=== PATIENT | female | born 1975 | race Caucasian/White ===

== ENCOUNTER 2016-10-20 09:47 | Outpatient (CLI) ==
[2016-04-18 09:12] VITALS: BMI 40.1
[2016-10-20 13:00] LABS: BASOPHILS # (AUTO) 0.1 K/uL (0-0.2); BASOPHILS % (AUTO) 0.7 % (0.0-3.0); EOSINOPHILS # (AUTO) 0.2 K/ul (0.0-0.7); EOSINOPHILS % (AUTO) 2.7 % (0.0-7.0); HEMATOCRIT 43.5 % (37.0-47.0); HEMOGLOBIN 14.3 g/dl (12.0-16.0); IMMATURE GRANULOCYTE % (AUTO) 0.3 % (0.0-5.0); LYMPHOCYTES # (AUTO) 2.2 K/uL (0.60-3.4); MEAN CORPUSCULAR HGB CONC 32.9 (31.8-35.4); MEAN CORPUSCULAR VOLUME 85.1 fl (81.0-99.0); MONOCYTES # (AUTO) 0.5 K/uL (0.4-2.0); MONOCYTES % (AUTO) 6.9 (0-10); NEUTROPHILS # (AUTO) 4.5 K/ul (2.0-6.9); NEUTROPHILS % (AUTO) 60.4; PLATELET COUNT 196 10^3/uL (140-440); RED BLOOD COUNT 5.11 10^6/ul (4.20-5.40); WHITE BLOOD COUNT 7.51 K/ul (4.6-10.2)
[2016-10-20 13:41] LABS: ALBUMIN 3.7 g/dL (3.4-5.0); ALBUMIN/GLOBULIN RATIO 1.09; ANION GAP 9.1; BILIRUBIN,TOTAL 0.49 mg/dL (0.00-1.20); BUN/CREATININE RATIO 12.5; CALCIUM 9.1 mg/dL (8.2-10.2); CHOL/HDL RATIO 4.9 (4.5-5.5); CREATININE 0.8 mg/dL (0.60-1.30); POTASSIUM 4.1 mmol/L (3.5-5.10); TOTAL PROTEIN 7.1 g/dL (6.4-8.2)
== END 2016-10-20 09:48 | disposition home or self-care (01) ==
LOC: LAB 09:47
PROVIDERS: ATTEND Nurse Practitioner Family
DX: Z00.00 Encounter for general adult medical examination without abnormal findings (principal)
CPT/HCPCS: 36415; 80053; 80061; 84443; 85025

== ENCOUNTER 2018-02-09 14:27 | Emergency (ER) ==
[2018-02-09 14:32] VITALS: BP 144/91; TEMP 98.1; BMI 42.5
[2018-02-09] MEDS ORDERED: TORADOL IM STA (17:09)
--- NOTE | 2018-02-09 17:09 | ED.PDOC ---
General ED Provider: Dr. CRESENCIO ISABEL Chief Complaint: Ankle Pain/Injury Stated Complaint: Stated dog on a cable caught her lt ankle and pulled her down. Experiencing severe pain and difficulty with ambulation Time Seen by Physician: 14:25 Mode of Arrival: Wheelchair Information Source: Patient Exam Limitations: No limitations Primary Care Provider: IVY AGUERO Referred to ED by: PCP Nursing and Triage Documentation Reviewed and Agree: Yes Reviewed sepsis parameters & appropriate labs ordered?: Yes System Inflammatory Response Syndrome: Not Applicable Sepsis Protocol: For patient's 13 years and over: Temp is 96.8 and below OR 101 and greater Pulse >90 BPM Resp >20/minute Acutely Altered Mental Status Are patient's symptoms suggestive of a new infection, such as: -Pneumonia -Skin, Soft Tissue -Endocarditis -UTI -Bone, Joint Infection -Implantable Device -Acute Abdominal Infection -Wound Infection -Meningitis -Blood Stream Catheter Infection -Unknown System Inflammatory Response Syndrome: Not Applicable Musculoskeletal Complaint Exam - Ankle/Foot Complaint/Exam Location of Injury: Reports: Right, Ankle Mechanism of Injury: Reports: Trauma Symptoms Are: Reports: Still present Onset of Pain: Reports: Immediate Initial Severity: Moderate Current Severity: Moderate Location: Reports: Diffuse Character: Reports: Sharp, Aching, Throbbing Alleviating: Reports: Rest Aggravating: Reports: Movement, Weight bearing Able to Bear Weight: Yes (Minimal) Gout Risk Factors: Reports: None Related Surgical History: Reports: None Lower Extremity Findings: Present: Tenderness Achilles Tendon Abnormality: No Tenderness: Present: Medial malleolus Differential Diagnosis: Sprain Review of Systems - Review Of Systems Constitutional: Reports: No symptoms Eyes: Reports: No symptoms Ears, Nose, Mouth, Throat: Reports: No symptoms Respiratory: Reports: No symptoms Cardiac: Reports: No symptoms GI: Reports: No symptoms : Reports: No symptoms Musculoskeletal: Reports: Joint pain Skin: Reports: No symptoms Neurological: Reports: No symptoms Endocrine: Reports: No symptoms Hematologic/Lymphatic: Reports: No symptoms All Other Systems: Reviewed and Negative Past Medical History - Past Medical History Previously Healthy: Yes Endocrine: Reports: None Cardiovascular: Reports: None Respiratory: Reports: None Hematological: Reports: None Gastrointestinal: Reports: None Genitourinary: Reports: None Neuro/Psych: Reports: None Musculoskeletal: Reports: None, Back Pain Cancer: Reports: None Last Menstrual Period: none Other Pertinent Past Medical History: hysterectomy, tubal x 2 back pain - Surgical History General Surgical History: Reports: Hysterectomy - Family History Family History: Reports: Unknown (no foreing travel no family or aquaintences with illness or TB) - Social History Smoking Status: Current every day smoker, Light tobacco smoker Hx Substance Use: No Alcohol Screening: None Physical Exam - Physical Exam Appearance: Well-appearing, No pain distress, Well-nourished, Obese Eyes: MELE, EOMI, Conjunctiva clear ENT: Ears normal, Nose normal, Oropharynx normal Respiratory: Airway patent, Breath sounds clear, Breath sounds equal, Respirations nonlabored Cardiovascular: RRR, Pulses normal, No rub, No murmur GI/: Soft, Nontender, No masses, Bowel sounds normal, No Organomegaly Musculoskeletal: ROM intact, No calf tenderness (Linear abrasion over distal pretibial region adjacent to ankle/ Tenderness to ROM testing/No deformity), Limited strength, Edema Skin: Warm, Dry, Normal color Neurological: Sensation intact, Motor intact, Reflexes intact, Cranial nerves intact, Alert, Oriented Psychiatric: Affect appropriate, Mood appropriate Interpretation - Radiology Interpretation Radiology Interpretation By: Radiologist Radiology Results: No acute changes Exam Interpreted: CT Scan Re-Evaluation - Re-Evaluation Time of Re-Evaluation: 18:15 Status: Improved Vital Signs Stable: Yes Appearance: NAD Additional Comments: Less tenderness over ankle injury Critical Care Note - Critical Care Note Total Time (mins): 0 Course - Course Orders, Labs, Meds: Orders Category Date Time Status CRUTCHES [ED CRUTCHES] .ONCE EMERGENCY 02/09/18 18:27 Active ED SPLINT APPLICATION .ONCE EMERGENCY 02/09/18 18:27 Active Ketorolac Tromethamine [Toradol] MEDS 02/09/18 17:09 Discontinued 30 mg IM ONCE STA CT ANKLE LEFT WITHOUT CONTRAST Stat RADS 02/09/18 17:13 Completed Medications Discontinued Medications Generic Name Dose Route Start Last Admin Trade Name Freq PRN Reason Stop Dose Admin Ketorolac Tromethamine 30 mg 02/09/18 17:09 02/09/18 17:30 Toradol IM 02/09/18 17:10 30 mg ONCE STA Administration Vital Signs: Temp Pulse Resp BP Pulse Ox 02/09/18 14:27 98.1 F 83 18 144/91 H 96 Departure - Departure Time of Disposition: 18:30 Disposition: HOME SELF-CARE Discharge Problem: Sprain and strain of ankle Instructions: Ankle Sprain (ED) Condition: Good Pt referred to PMD for follow-up: Yes (PCP) IPMP verified?: No Additional Instructions: Elevate injured ankle apply ice Crutches /minimize weight bearing ambulation Prescriptions: Ketorolac Tromethamine [Toradol] 10 mg PO Q6H PRN #20 tablet PRN Reason: ankle pain Allergies/Adverse Reactions: Allergies codeine Adverse Reaction (Verified 02/09/18 14:32) Home Medications: Ambulatory Orders Ketorolac Tromethamine [Toradol] 10 mg PO Q6H PRN #20 tablet 02/09/18 Disposition Discussed With: Patient
--- NOTE | 2018-02-09 18:04 | CT ---
EXAM: CT scan left ankle HISTORY: Injury COMPARISON: None. FINDINGS: Contiguous axial images obtained through the ankle without contrast utilizing 2-mm collima tion. Sagittal and coronal reconstructions were imaged and reviewed. The ankle mortise and talar do me are intact.. There is a 3.5 mm bony body medial to the midportion of the talus which is indetermi israel, likely chronic in nature. There are plantar and retrocalcaneal spurs. IMPRESSION: Small bony body medial to the mid to talus which is indeterminate most likely chronic in nature. Plantar and retrocalcaneal spurs
== END 2018-02-09 18:52 | disposition home or self-care (01) ==
LOC: ED 14:27
DX: S93.402A Sprain of unspecified ligament of left ankle, initial encounter (principal); W18.09XA Striking against other object with subsequent fall, initial encounter; F17.210 Nicotine dependence, cigarettes, uncomplicated
CPT/HCPCS: 96372; 99283

== ENCOUNTER 2022-08-23 11:32 | Observation (INO) ==
--- NOTE | 2022-08-23 11:54 | ED.PDOC ---
General ED Provider: Dr. RASHEED MOSLEY Chief Complaint: Hypertension Stated Complaint: bp has steadily been going up some headache today no trauma. Both parents had HBP No fever or neck pain Time Seen by Provider: 08/23/22 11:36 Mode of Arrival: Walk-In Information Source: Patient Exam Limitations: No limitations Primary Care Provider: IVY PELAEZElvis Seen Within Last 72 Hours for Same Complaint By: ED Nursing and Triage Documentation Reviewed and Agree: Yes Does patient meet sepsis criteria?: No System Inflammatory Response Syndrome: Not Applicable Sepsis Protocol: For patient's 13 years and over: Temp is 96.8 and below OR 101 and greater Pulse >90 BPM Resp >20/minute Acutely Altered Mental Status Are patient's symptoms suggestive of a new infection, such as: -Pneumonia -Skin, Soft Tissue -Endocarditis -UTI -Bone, Joint Infection -Implantable Device -Acute Abdominal Infection -Wound Infection -Meningitis -Blood Stream Catheter Infection -Unknown Review of Systems Review Of Systems Constitutional: Reports No symptoms Eyes: Reports No symptoms Ears, Nose, Mouth, Throat: Reports No symptoms Respiratory: Reports No symptoms Cardiac: Reports No symptoms GI: Reports No symptoms : Reports No symptoms Musculoskeletal: Reports No symptoms Skin: Reports No symptoms Neurological: Reports No symptoms Endocrine: Reports No symptoms Hematologic/Lymphatic: Reports No symptoms All Other Systems: Reviewed and Negative [facility] Medical History Gastroesophageal reflux disease Family History FATHER CKD (chronic kidney disease) FATHER Heart disease Mother Heart disease FATHER Stroke Mother Stroke Mother Heart attack Social History Smoking and tobacco status: Current every day smoker Tobacco type: cigarettes Smoking cigarettes per day: 8 Tobacco: How many years used: 24 Surgical History History of gynecological procedure Status post hysterectomy (~2010) Status post tonsillectomy Female Reproductive History Menstrual Hx Hysterectomy: Yes Hx Tubal Ligation: No Physical Exam Physical Exam Appearance: Reports Well-appearing Ill-appearing: None Pain Distress: Mild Eyes: Reports MELE, EOMI, Conjunctiva clear and Other (fundi neg ) ENT: Reports Ears normal, Nose normal and Oropharynx normal Neck: Supple Respiratory: Reports Airway patent, Breath sounds clear and Breath sounds equal Cardiovascular: Reports RRR, Pulses normal and No murmur GI/: Reports Soft and Nontender Musculoskeletal: Reports Normal strength, ROM intact and No edema Skin: Reports Warm, Dry and Normal color Neurological: Reports Sensation intact, Motor intact and Alert Psychiatric: Reports Affect appropriate and Mood appropriate Interpretation Radiology Interpretation Radiology Interpretation By: Radiologist Exam Interpreted: CXR and CT Scan Xray Comments: bioth neg EKG Interpretation Time of EKG #1: 12:09 Rate: Normal Rhythm: Sinus [place]: NL ST Segment: Normal Interpretation: pos lae Critical Care Note Critical Care Note Total Critical Care Time (mins): 20 Comments: chart review / bedside exams and re evaluation / IV meds / hypokalemia Course Course Hematology/Chemistry: 08/23/22 12:04 08/23/22 12:04 Orders, Labs, Meds: Lab Review 08/23/22 08/23/22 08/23/22 12:04 12:04 12:04 WBC 11.76 H RBC 5.32 Hgb 15.3 Hct 45.0 MCV 84.6 MCH 28.8 MCHC 34.0 RDW Coeff of Arias 12.8 Plt Count 213 Immature Gran % (Auto) 0.3 Neut % (Auto) 65.1 Lymph % (Auto) 26.0 Jasper % (Auto) 6.0 Eos % (Auto) 2.1 Baso % (Auto) 0.5 Neut # (Auto) 7.7 H Lymph # (Auto) 3.1 Jasper # (Auto) 0.7 Eos # (Auto) 0.3 Baso # (Auto) 0.1 Immature Gran # (Auto) 0.0 Sodium 142.2 Potassium 3.22 L Chloride 106.9 Carbon Dioxide 28.0 Anion Gap 10.52 BUN 11.7 Creatinine 0.80 Estimated GFR (MDRD) 77.00 BUN/Creatinine Ratio 14.62 Glucose 102.3 Calcium 9.18 Magnesium 2.04 Total Bilirubin 0.57 AST 23.9 ALT 20.7 Alkaline Phosphatase 91.8 Troponin I < 0.012 Total Protein 8.14 Albumin 4.60 Globulin 3.54 Albumin/Globulin Ratio 1.29 Urine Opiates Screen Ur Oxycodone Screen Urine Methadone Screen Ur Propoxyphene Screen Ur Barbiturates Screen U Tricyclic Antidepress Ur Phencyclidine Scrn Ur Amphetamine Screen U Methamphetamines Scrn U Benzodiazepines Scrn Urine Cocaine Screen U Cannabinoids Screen Plasma/Serum Alcohol SARS CoV-2 RNA Rapid YOLANDA 08/23/22 08/23/22 08/23/22 12:35 13:50 15:20 WBC RBC Hgb Hct MCV MCH MCHC RDW Coeff of Arias Plt Count Immature Gran % (Auto) Neut % (Auto) Lymph % (Auto) Jasper % (Auto) Eos % (Auto) Baso % (Auto) Neut # (Auto) Lymph # (Auto) Jasper # (Auto) Eos # (Auto) Baso # (Auto) Immature Gran # (Auto) Sodium Potassium Chloride Carbon Dioxide Anion Gap BUN Creatinine Estimated GFR (MDRD) BUN/Creatinine Ratio Glucose Calcium Magnesium Total Bilirubin AST ALT Alkaline Phosphatase Troponin I Total Protein Albumin Globulin Albumin/Globulin Ratio Urine Opiates Screen Negative Ur Oxycodone Screen Negative Urine Methadone Screen Negative Ur Propoxyphene Screen Negative Ur Barbiturates Screen Negative U Tricyclic Antidepress Negative Ur Phencyclidine Scrn Negative Ur Amphetamine Screen Negative U Methamphetamines Scrn Negative U Benzodiazepines Scrn Negative Urine Cocaine Screen Negative U Cannabinoids Screen Negative Plasma/Serum Alcohol < 10.0 SARS CoV-2 RNA Rapid YOLANDA Negative Orders Category Date Time Status ADMIT PATIENT INPATIENT .TO [facility] (MONITORED BED) ADMISSION 08/23/22 16:17 Active EKG-(ED ONLY) Stat CARDIO 08/23/22 11:56 Completed EKG-(IP & OP ONLY) DAILY CARDIO 08/24/22 06:00 Ordered EKG-(IP & OP ONLY) DAILY CARDIO 08/25/22 06:00 Ordered ACTIVITY .Up ad Yasmeen CARE 08/23/22 16:17 Active INTAKE & OUTPUT Q8HR CARE 08/23/22 16:17 Active IP: INSERT SALINE LOCK ONCE CARE 08/23/22 16:17 Active TELEMETRY MONITORING TELE CARE 08/23/22 16:18 Active VITAL SIGNS Q8HR CARE 08/23/22 16:17 Active VTE PREVENTION .SCD On AM/Off PM CARE 08/23/22 16:17 Active CARDIAC DIET DIETARY 08/23/22 Dinner Ordered ED CORONARY CLINICAL SPECIALIST APPLIED .ONCE EMERGENCY 08/23/22 14:03 Active ED IV/MEDIPORT/POWERPORT .ONCE EMERGENCY 08/23/22 11:54 Active ALCOHOL LEVEL [BLOOD ALCOHOL] Stat LAB 08/23/22 12:35 Completed CBC W/ AUTO DIFF DAILY@0600 LAB 08/24/22 06:00 Ordered CBC W/ AUTO DIFF DAILY@0600 LAB 08/25/22 06:00 Ordered CBC W/ AUTO DIFF Stat LAB 08/23/22 12:04 Completed CMP [COMPREHENSIVE METABOLIC PANEL] Stat LAB 08/23/22 12:04 Completed COMPREHENSIVE METABOLIC PANEL DAILY@0600 LAB 08/24/22 06:00 Ordered COMPREHENSIVE METABOLIC PANEL DAILY@0600 LAB 08/25/22 06:00 Ordered COVID [SARS COV-2 RNA RAPID YOLANDA] Stat LAB 08/23/22 15:20 Completed MAGNESIUM Stat LAB 08/23/22 12:04 Completed TROPONIN I Q8H LAB 08/23/22 22:30 Ordered TROPONIN I Q8H LAB 08/24/22 06:30 Ordered TROPONIN I Stat LAB 08/23/22 12:04 Completed URINE DRUG SCREEN (RAPID FOR ED) [DRUG SCREEN, URINE, LAB 08/23/22 13:50 Completed RAPID] Stat 0.9 % Sodium Chloride [Saline Flush] MEDS 08/23/22 11:54 Active 1 syr IVF PRN PRN Acetaminophen [Tylenol] MEDS 08/23/22 16:23 Active 1,000 mg PO ONCE PRN Acetaminophen [Tylenol] MEDS 08/23/22 15:08 Discontinued 1,000 mg PO ONCE STA Amlodipine Besylate [Norvasc] MEDS 08/23/22 14:02 Discontinued 5 mg PO ONCE STA Hydralazine HCl MEDS 08/23/22 15:08 Discontinued 5 mg IVP ONCE STA Hydralazine HCl MEDS 08/23/22 16:04 Discontinued 5 mg IVP ONCE STA Hydralazine HCl MEDS 08/23/22 16:23 Discontinued 5 mg IVP Q6H PRN Pantoprazole Sodium [Protonix] MEDS 08/23/22 16:30 Active 40 mg PO QDAC Potassium Chloride [K-Dur] MEDS 08/23/22 21:00 Active 20 meq PO BID Potassium Chloride [K-Dur] MEDS 08/23/22 13:50 Discontinued 20 meq PO ONCE STA Sodium Chloride 0.9% [Sodium Chloride] 1,000 ml MEDS 08/23/22 11:55 Active IV 30 mls/hr RESUSCITATION STATUS Routine OTHERS 08/23/22 16:17 Ordered CHEST, 1V AP ONLY Stat RADS 08/23/22 11:[address] HEAD W/O CONTRAST Stat RADS 08/23/22 12:22 Completed Medications Generic Name Dose Route Start Last Admin Trade Name Freq PRN Reason Stop Dose Admin Acetaminophen 1,000 mg 08/23/22 16:23 Acetaminophen 500 Mg Tablet PO ONCE PRN Pain Hydralazine HCl 10 mg 08/23/22 16:59 Hydralazine Hcl 20 Mg/Ml Sdv IVP Q6H PRN Hypertension Sodium Chloride 1,000 mls @ 30 mls/hr 08/23/22 11:55 08/23/22 12:20 Sodium Chloride IV 08/24/22 21:14 30 mls/hr .[id number] STA Administration Pantoprazole Sodium 40 mg 08/23/22 16:30 08/23/22 17:54 Pantoprazole Sodium 40 Mg Tablet.Dr PO 40 mg QDAC ANDREW Administration Potassium Chloride 20 meq 08/23/22 21:00 Potassium Chloride 20 Meq Tab PO BID ANDREW Sodium Chloride 1 syr 08/23/22 11:54 0.9% Sodium Chloride 10 Ml Disp.Syrin IVF PRN PRN To flush IV Discontinued Medications Generic Name Dose Route Start Last Admin Trade Name Freq PRN Reason Stop Dose Admin Acetaminophen 1,000 mg 08/23/22 15:08 08/23/22 15:17 Acetaminophen 500 Mg Tablet PO 08/23/22 15:09 1,000 mg ONCE STA Administration Amlodipine Besylate 5 mg 08/23/22 14:02 08/23/22 14:10 Amlodipine Besylate 5 Mg Tablet PO 08/23/22 14:03 5 mg ONCE STA Administration Hydralazine HCl 5 mg 08/23/22 15:08 08/23/22 15:17 Hydralazine Hcl 20 Mg/Ml Sdv IVP 08/23/22 15:09 5 mg ONCE STA Administration Hydralazine HCl 5 mg 08/23/22 16:04 08/23/22 16:09 Hydralazine Hcl 20 Mg/Ml Sdv IVP 08/23/22 16:05 5 mg ONCE STA Administration Hydralazine HCl 5 mg 08/23/22 16:23 Hydralazine Hcl 20 Mg/Ml Sdv IVP Q6H PRN Hypertension Potassium Chloride 20 meq 08/23/22 13:50 08/23/22 13:59 Potassium Chloride 20 Meq Tab PO 08/23/22 13:51 20 meq ONCE STA Administration Vital Signs: Temp Pulse Resp BP Pulse Ox 08/23/22 16:42 172/102 H 08/23/22 16:03 178/101 H 08/23/22 15:43 167/118 H 08/23/22 15:28 168/99 H 08/23/22 14:58 184/114 H 08/23/22 14:45 181/112 H 08/23/22 14:17 176/111 H 08/23/22 14:10 180/118 H 08/23/22 13:42 175/102 H 08/23/22 13:31 169/106 H 08/23/22 13:21 158/109 H 08/23/22 13:01 163/119 H 08/23/22 11:32 97.9 F 119 H 16 195/138 H 97 bp after initial med responded some and goal of approx 20 % reduction After observation pressure trened up discussed with pt and will start amlodipine 5 mg will add prn q 6 hrs hydralazine 10 mg IV admit due to IV meds \ BP reduction improved MARYJANE Risk Score MARYJANE Risk Score: Risk Score Odds of by 30D 0 0.1 (0.1-0.2) 1 0.3 (0.2-0.3) 2 0.4 (0.3-0.5) 3 0.7 (0.6-0.9) 4 1.2 (1.0-1.5) 5 2.2 (1.9-2.6) 6 3.0 (2.5-3.6) 7 4.8 (3.8-6.1) Discharge Plan Discharge Patient Disposition: PLACED OBSERVATION Discharge Problem: Hypertensive urgency, Hypokalemia Did you review [place] BUTTERMAKER CONTINUOUS CHURN?: Not Applicable ED Provider: RASHEED MOSLEY Condition: Good Physician Progress Note: []
[2022-08-23] MEDS ORDERED: SODIUM CHLORIDE 1,000 ML IV STA (11:55)
[2022-08-23 12:12] LABS: BASOPHILS # (AUTO) 0.1 K/uL (0-0.2); BASOPHILS % (AUTO) 0.5 % (0.0-3.0); EOSINOPHILS # (AUTO) 0.3 K/ul (0.0-0.7); EOSINOPHILS % (AUTO) 2.1 % (0.0-7.0); HEMOGLOBIN 15.3 g/dl (12.0-16.0); IMMATURE GRANULOCYTE % (AUTO) 0.3 % (0.0-5.0); LYMPHOCYTES # (AUTO) 3.1 K/uL (0.60-3.4); MEAN CORPUSCULAR HEMOGLOBIN 28.8 pg (27.0-31.0); MEAN CORPUSCULAR VOLUME 84.6 fl (81.0-99.0); MONOCYTES # (AUTO) 0.7 K/uL (0.4-2.0); NEUTROPHILS # (AUTO) 7.7 K/ul (2.0-6.9); NEUTROPHILS % (AUTO) 65.1 % (42.2-75.2); PLATELET COUNT 213 10^3/uL (140-440); RDW COEFFICIENT OF VARIATION 12.8 % (11.6-14.8); RED BLOOD COUNT 5.32 10^6/ul (4.20-5.40); WHITE BLOOD COUNT 11.76 K/ul (4.6-10.2)
--- NOTE | 2022-08-23 12:16 | DI ---
EXAM: Chest one view, frontal view only. HISTORY: Hypertensive urgency. COMPARISON: 04/18/2016. FINDINGS: The heart size is normal. There is no pulmonary vascular congestion. The lungs are clear . No pleural effusion or pneumothorax is seen. No acute osseous abnormality is identified. Since t he prior study, there has been no significant interval change. IMPRESSION: No acute cardiopulmonary process.
[2022-08-23 12:23] LABS: ALANINE AMINOTRANSFERASE 20.7 U/L (0-35); ALKALINE PHOSPHATASE 91.8 U/L (38-126); ASPARTATE AMINO TRANSFERASE 23.9 U/L (14-36); BILIRUBIN,TOTAL 0.57 mg/dL (0.2-1.3); BLOOD UREA NITROGEN 11.7 mg/dL (7-17); CALCIUM 9.18 mg/dL (8.4-10.2); CHLORIDE 106.9 mmol/L (98-107); GLUCOSE 102.3 mg/dL (74-106); POTASSIUM 3.22 mmol/L (3.5-5.1); SODIUM 142.2 mmol/L (134.5-145); TOTAL PROTEIN 8.14 g/dL (6.3-8.2)
[2022-08-23 12:34] LABS: TROPONIN I < 0.012 ng/ml (0.0000-0.120)
--- NOTE | 2022-08-23 12:50 | CT ---
EXAM: CT head without contrast. HISTORY: Headache. Hypertensive urgency. COMPARISON: None. TECHNIQUE: Multiple axial images of the brain were obtained from the skull base through the vertex w ithout intravenous contrast. Multiplanar reformats were provided. FINDINGS: There is no intracranial hemorrhage or extraaxial collection. The guerra-white differentiat ion is maintained without evidence for acute large vascular territory infarction. The cortical sulci and basal cisterns are well visualized. There is no hydrocephalus, mass effect, or midline shift. The paranasal sinuses and mastoid air cells are clear. The calvarium is intact. IMPRESSION: No acute intracranial abnormality. All CT scans are performed using dose optimization techniques as appropriate to the performed exam an d include at least one of the following: Automated exposure control, adjustment of the mA and/or kV according t o size, and the use of iterative reconstruction technique.
[2022-08-23] MEDS ORDERED: K-DUR PO STA (13:50)
[2022-08-23] MEDS ORDERED: COZAAR PO STA (13:52)
[2022-08-23] MEDS ORDERED: NORVASC PO STA (14:02)
[2022-08-23 14:10] LABS: AMPHETAMINE SCREEN,URINE NEGATIVE (NEGATIVE); BARBITURATE SCREEN,URINE NEGATIVE (NEGATIVE); BENZODIAZEPINES SCREEN,URINE NEGATIVE (NEGATIVE); CANNABINOID SCREEN,URINE NEGATIVE (NEGATIVE); COCAIN SCREEN,URINE NEGATIVE (NEGATIVE); METHADONE URINE SCREEN NEGATIVE (NEGATIVE); METHAMPHETAMINES SCREEN,URINE NEGATIVE (NEGATIVE); OPIATE SCREEN,URINE NEGATIVE (NEGATIVE); OXYCODONE URINE SCREEN NEGATIVE (NEGATIVE); PHENCYCLIDINE SCREEN,URINE NEGATIVE (NEGATIVE); PROPOXYPHENE URINE SCREEN NEGATIVE (NEGATIVE); TRICYCLIC ANTIDEPRESSANTS URIN NEGATIVE (NEGATIVE)
[2022-08-23] MEDS ORDERED: HYDRALAZINE HCL IVP STA ×2 (15:08→16:04)
[2022-08-23] MEDS ORDERED: TYLENOL PO STA (15:08)
[2022-08-23] MEDS ORDERED: HYDRALAZINE HCL IVP PRN (16:23)
[2022-08-23] MEDS ORDERED: TYLENOL PO PRN (16:23)
[2022-08-23 17:29] VITALS: BMI 40.6
[2022-08-23] MEDS: PROTONIX PO SCH (17:54)
--- NOTE | 2022-08-23 20:34 | PCM ---
Chief Complaint Chief Complaint: elevated BP, headache History of Present Illness History of Present Illness: has been trending upward. Today highest and she came in Review of Systems Constitutional: Reports No symptoms Eyes: Reports No symptoms Ears: Reports No symptoms Nose: Reports No symptoms Throat: Reports No symptoms Mouth: Reports No symptoms Respiratory: Reports No symptoms Cardiovascular: Reports No symptoms Gastrointestinal: Reports No symptoms Genitourinary: Reports No symptoms Neurological: Reports Headache (not worst ever front throb ); Denies Dizziness, Numbness, Weakness, Speech difficulty, Problems with walking, Tremor or Fainting Musculoskeletal: Reports No symptoms Skin: Reports No symptoms Immunology: Reports No symptoms Hematology: Reports No symptoms Endocrine: Reports No symptoms Psychiatric: Reports No symptoms Habits: Reports Tobacco use Allergies Allergies Allergy/AdvReac Type Severity Reaction Status Date / Time codeine AdvReac Verified 08/23/22 12:05 PFS Medical History Gastroesophageal reflux disease Surgical History History of gynecological procedure Status post hysterectomy (~2010) Status post tonsillectomy Family History FATHER CKD (chronic kidney disease) FATHER Heart disease Mother Heart disease FATHER Stroke Mother Stroke Mother Heart attack Social History Smoking and tobacco status: Current every day smoker Tobacco type: cigarettes Smoking cigarettes per day: 8 Tobacco: How many years used: 24 Medications Medications: Medications Generic Name Dose Route Start Last Admin Trade Name Freq PRN Reason Stop Dose Admin Acetaminophen 1,000 mg 08/23/22 16:23 Acetaminophen 500 Mg Tablet PO ONCE PRN Pain Hydralazine HCl 10 mg 08/23/22 16:59 Hydralazine Hcl 20 Mg/Ml Sdv IVP Q6H PRN Hypertension Sodium Chloride 1,000 mls @ 30 mls/hr 08/23/22 11:55 08/23/22 12:20 Sodium Chloride IV 08/24/22 21:14 30 mls/hr .[id number] STA Administration Pantoprazole Sodium 40 mg 08/23/22 16:30 08/23/22 17:54 Pantoprazole Sodium 40 Mg Tablet.Dr PO 40 mg QDAC ANDREW Administration Potassium Chloride 20 meq 08/23/22 21:00 Potassium Chloride 20 Meq Tab PO BID ANDREW Sodium Chloride 1 syr 08/23/22 11:54 0.9% Sodium Chloride 10 Ml Disp.Syrin IVF PRN PRN To flush IV Body Composition Height: 5 ft 3 in Weight: 229 lb 11.2 oz Body Mass Index (BMI): 40.6 Vital Signs Temperature: 97.9 F Pulse Rate: 92 Respiratory Rate: 18 Blood Pressure: 162/106 O2 Sat by Pulse Oximetry: 100 Physical Examination Appearance: Reports Well-appearing Ill-appearing: None Pain Distress: Mild Eyes: Reports MELE, EOMI and Conjunctiva clear ENT: Reports Ears normal, Nose normal and Oropharynx normal Neck: Supple Respiratory: Reports Airway patent, Breath sounds clear and Breath sounds equal Cardiovascular: Reports RRR, Pulses normal and No murmur GI/: Reports Soft and Nontender Musculoskeletal: Reports Normal strength and ROM intact Skin: Reports Warm and Normal color Neurological: Reports Sensation intact, Motor intact, Alert and Oriented Psychiatric: Reports Affect appropriate and Mood appropriate Lab/Tests/Diagnostic Imaging Lab/Tests/Diagnostic Imaging: Lab Review 08/23/22 08/23/22 08/23/22 12:04 12:04 12:04 WBC 11.76 H RBC 5.32 Hgb 15.3 Hct 45.0 MCV 84.6 MCH 28.8 MCHC 34.0 RDW Coeff of Arias 12.8 Plt Count 213 Immature Gran % (Auto) 0.3 Neut % (Auto) 65.1 Lymph % (Auto) 26.0 Freestone % (Auto) 6.0 Eos % (Auto) 2.1 Baso % (Auto) 0.5 Neut # (Auto) 7.7 H Lymph # (Auto) 3.1 Freestone # (Auto) 0.7 Eos # (Auto) 0.3 Baso # (Auto) 0.1 Immature Gran # (Auto) 0.0 Sodium 142.2 Potassium 3.22 L Chloride 106.9 Carbon Dioxide 28.0 Anion Gap 10.52 BUN 11.7 Creatinine 0.80 Estimated GFR (MDRD) 77.00 BUN/Creatinine Ratio 14.62 Glucose 102.3 Calcium 9.18 Magnesium 2.04 Total Bilirubin 0.57 AST 23.9 ALT 20.7 Alkaline Phosphatase 91.8 Troponin I < 0.012 Total Protein 8.14 Albumin 4.60 Globulin 3.54 Albumin/Globulin Ratio 1.29 Urine Opiates Screen Ur Oxycodone Screen Urine Methadone Screen Ur Propoxyphene Screen Ur Barbiturates Screen U Tricyclic Antidepress Ur Phencyclidine Scrn Ur Amphetamine Screen U Methamphetamines Scrn U Benzodiazepines Scrn Urine Cocaine Screen U Cannabinoids Screen Plasma/Serum Alcohol SARS CoV-2 RNA Rapid YOLANDA 08/23/22 08/23/22 08/23/22 12:35 13:50 15:20 WBC RBC Hgb Hct MCV MCH MCHC RDW Coeff of Arias Plt Count Immature Gran % (Auto) Neut % (Auto) Lymph % (Auto) Freestone % (Auto) Eos % (Auto) Baso % (Auto) Neut # (Auto) Lymph # (Auto) Freestone # (Auto) Eos # (Auto) Baso # (Auto) Immature Gran # (Auto) Sodium Potassium Chloride Carbon Dioxide Anion Gap BUN Creatinine Estimated GFR (MDRD) BUN/Creatinine Ratio Glucose Calcium Magnesium Total Bilirubin AST ALT Alkaline Phosphatase Troponin I Total Protein Albumin Globulin Albumin/Globulin Ratio Urine Opiates Screen Negative Ur Oxycodone Screen Negative Urine Methadone Screen Negative Ur Propoxyphene Screen Negative Ur Barbiturates Screen Negative U Tricyclic Antidepress Negative Ur Phencyclidine Scrn Negative Ur Amphetamine Screen Negative U Methamphetamines Scrn Negative U Benzodiazepines Scrn Negative Urine Cocaine Screen Negative U Cannabinoids Screen Negative Plasma/Serum Alcohol < 10.0 SARS CoV-2 RNA Rapid YOLANDA Negative Orders Category Date Time Status ADMIT PATIENT INPATIENT .TO [facility] (MONITORED BED) ADMISSION 08/23/22 16:17 Active EKG-(ED ONLY) Stat CARDIO 08/23/22 11:56 Completed EKG-(IP & OP ONLY) DAILY CARDIO 08/24/22 06:00 Ordered EKG-(IP & OP ONLY) DAILY CARDIO 08/25/22 06:00 Ordered ACTIVITY .Up ad Yasmeen CARE 08/23/22 16:17 Active INTAKE & OUTPUT Q8HR CARE 08/23/22 16:17 Active IP: INSERT SALINE LOCK ONCE CARE 08/23/22 16:17 Active TELEMETRY MONITORING TELE CARE 08/23/22 16:18 Active VITAL SIGNS Q8HR CARE 08/23/22 16:17 Active VTE PREVENTION .SCD On AM/Off PM CARE 08/23/22 16:17 Active CARDIAC DIET DIETARY 08/23/22 Dinner Ordered ED SSN/SSBN [employer] .ONCE EMERGENCY 08/23/22 14:03 Active ED IV/MEDIPORT/POWERPORT .ONCE EMERGENCY 08/23/22 11:54 Active ALCOHOL LEVEL [BLOOD ALCOHOL] Stat LAB 08/23/22 12:35 Completed CBC W/ AUTO DIFF DAILY@0600 LAB 08/24/22 06:00 Ordered CBC W/ AUTO DIFF DAILY@0600 LAB 08/25/22 06:00 Ordered CBC W/ AUTO DIFF Stat LAB 08/23/22 12:04 Completed CMP [COMPREHENSIVE METABOLIC PANEL] Stat LAB 08/23/22 12:04 Completed COMPREHENSIVE METABOLIC PANEL DAILY@0600 LAB 08/24/22 06:00 Ordered COMPREHENSIVE METABOLIC PANEL DAILY@0600 LAB 08/25/22 06:00 Ordered COVID [SARS COV-2 RNA RAPID YOLANDA] Stat LAB 08/23/22 15:20 Completed MAGNESIUM Stat LAB 08/23/22 12:04 Completed TROPONIN I Q8H LAB 08/23/22 22:30 Ordered TROPONIN I Q8H LAB 08/24/22 06:30 Ordered TROPONIN I Stat LAB 08/23/22 12:04 Completed URINE DRUG SCREEN (RAPID FOR ED) [DRUG SCREEN, URINE, LAB 08/23/22 13:50 Completed RAPID] Stat 0.9 % Sodium Chloride [Saline Flush] MEDS 08/23/22 11:54 Active 1 syr IVF PRN PRN Acetaminophen [Tylenol] MEDS 08/23/22 16:23 Active 1,000 mg PO ONCE PRN Acetaminophen [Tylenol] MEDS 08/23/22 15:08 Discontinued 1,000 mg PO ONCE STA Amlodipine Besylate [Norvasc] MEDS 08/23/22 14:02 Discontinued 5 mg PO ONCE STA Hydralazine HCl MEDS 08/23/22 16:59 Active 10 mg IVP Q6H PRN Hydralazine HCl MEDS 08/23/22 15:08 Discontinued 5 mg IVP ONCE STA Hydralazine HCl MEDS 08/23/22 16:04 Discontinued 5 mg IVP ONCE STA Hydralazine HCl MEDS 08/23/22 16:23 Discontinued 5 mg IVP Q6H PRN Pantoprazole Sodium [Protonix] MEDS 08/23/22 16:30 Active 40 mg PO QDAC Potassium Chloride [K-Dur] MEDS 08/23/22 21:00 Active 20 meq PO BID Potassium Chloride [K-Dur] MEDS 08/23/22 13:50 Discontinued 20 meq PO ONCE STA Sodium Chloride 0.9% [Sodium Chloride] 1,000 ml MEDS 08/23/22 11:55 Active IV 30 mls/hr RESUSCITATION STATUS Routine OTHERS 08/23/22 16:17 Ordered CHEST, 1V AP ONLY Stat RADS 08/23/22 11:[address] HEAD W/O CONTRAST Stat RADS 08/23/22 12:22 Completed Medications Generic Name Dose Route Start Last Admin Trade Name Josselyn PRN Reason Stop Dose Admin Acetaminophen 1,000 mg 08/23/22 16:23 Acetaminophen 500 Mg Tablet PO ONCE PRN Pain Hydralazine HCl 10 mg 08/23/22 16:59 Hydralazine Hcl 20 Mg/Ml Sdv IVP Q6H PRN Hypertension Sodium Chloride 1,000 mls @ 30 mls/hr 08/23/22 11:55 08/23/22 12:20 Sodium Chloride IV 08/24/22 21:14 30 mls/hr .[id number] STA Administration Pantoprazole Sodium 40 mg 08/23/22 16:30 08/23/22 17:54 Pantoprazole Sodium 40 Mg Tablet.Dr PO 40 mg QDAC ANDREW Administration Potassium Chloride 20 meq 08/23/22 21:00 Potassium Chloride 20 Meq Tab PO BID ANDREW Sodium Chloride 1 syr 08/23/22 11:54 0.9% Sodium Chloride 10 Ml Disp.Syrin IVF PRN PRN To flush IV Discontinued Medications Generic Name Dose Route Start Last Admin Trade Name Jsoselyn PRN Reason Stop Dose Admin Acetaminophen 1,000 mg 08/23/22 15:08 08/23/22 15:17 Acetaminophen 500 Mg Tablet PO 08/23/22 15:09 1,000 mg ONCE STA Administration Amlodipine Besylate 5 mg 08/23/22 14:02 08/23/22 14:10 Amlodipine Besylate 5 Mg Tablet PO 08/23/22 14:03 5 mg ONCE STA Administration Hydralazine HCl 5 mg 08/23/22 15:08 08/23/22 15:17 Hydralazine Hcl 20 Mg/Ml Sdv IVP 08/23/22 15:09 5 mg ONCE STA Administration Hydralazine HCl 5 mg 08/23/22 16:04 08/23/22 16:09 Hydralazine Hcl 20 Mg/Ml Sdv IVP 08/23/22 16:05 5 mg ONCE STA Administration Hydralazine HCl 5 mg 08/23/22 16:23 Hydralazine Hcl 20 Mg/Ml Sdv IVP Q6H PRN Hypertension Potassium Chloride 20 meq 08/23/22 13:50 08/23/22 13:59 Potassium Chloride 20 Meq Tab PO 08/23/22 13:51 20 meq ONCE STA Administration Assessment (1) Hypertensive urgency: Status: Acute Code(s): I16.0 - Hypertensive urgency SNOMED Code(s): 360222771 (2) Hypokalemia: Status: Acute Code(s): E87.6 - Hypokalemia SNOMED Code(s): 75440302 Plan Plan: 1For elevated pressure start amlodipine 5 mg po daily. Hydralazine q 6 hrs prn systolic > 160 / diastolic > 100 2.For hypokalemia KCL20 Meq po bid 3GI - protonix 4.DVT - SCD Report given to Dr Kelley at evening shift change
[2022-08-23] MEDS ORDERED: K-DUR PO SCH (21:00)
[2022-08-23] MEDS: HYDRALAZINE HCL IVP PRN (23:19)
[2022-08-24] MEDS: PROTONIX PO SCH (05:49)
[2022-08-24 06:34] LABS: BASOPHILS # (AUTO) 0.1 K/uL (0-0.2); BASOPHILS % (AUTO) 0.5 % (0.0-3.0); EOSINOPHILS # (AUTO) 0.3 K/ul (0.0-0.7); EOSINOPHILS % (AUTO) 2.8 % (0.0-7.0); HEMATOCRIT 43.9 % (37.0-47.0); HEMOGLOBIN 14.9 g/dl (12.0-16.0); IMMATURE GRANULOCYTE % (AUTO) 0.3 % (0.0-5.0); LYMPHOCYTES # (AUTO) 2.6 K/uL (0.60-3.4); LYMPHOCYTES % (AUTO) 23.4 (10.0-50.0); MEAN CORPUSCULAR HEMOGLOBIN 28.9 pg (27.0-31.0); MEAN CORPUSCULAR HGB CONC 33.9 (31.8-35.4); MEAN CORPUSCULAR VOLUME 85.1 fl (81.0-99.0); MONOCYTES # (AUTO) 0.7 K/uL (0.4-2.0); MONOCYTES % (AUTO) 5.9 (0-10); NEUTROPHILS # (AUTO) 7.4 K/ul (2.0-6.9); NEUTROPHILS % (AUTO) 67.1 % (42.2-75.2); PLATELET COUNT 221 10^3/uL (140-440); RED BLOOD COUNT 5.16 10^6/ul (4.20-5.40)
[2022-08-24 06:43] LABS: ALANINE AMINOTRANSFERASE 18.5 U/L (0-35); ALBUMIN 4.13 g/dL (3.5-5.0); ALKALINE PHOSPHATASE 80.7 U/L (38-126); ASPARTATE AMINO TRANSFERASE 21.7 U/L (14-36); BILIRUBIN,TOTAL 0.75 mg/dL (0.2-1.3); BLOOD UREA NITROGEN 12.6 mg/dL (7-17); CALCIUM 8.92 mg/dL (8.4-10.2); CARBON DIOXIDE 23.1 mmol/L (22-30.0); CHLORIDE 110.3 mmol/L (98-107); CREATININE 0.64 mg/dL (0.60-1.30); GLUCOSE 114.3 mg/dL (74-106); POTASSIUM 3.84 mmol/L (3.5-5.1); SODIUM 138.6 mmol/L (134.5-145); TOTAL PROTEIN 7.4 g/dL (6.3-8.2)
[2022-08-24] MEDS: K-DUR PO SCH ×2 (08:14→16:54)
[2022-08-24] MEDS ORDERED: TYLENOL PO PRN (08:22)
[2022-08-24 10:00] LABS: ERYTHROCYTE SEDIMENTATION RATE 7 mm/hr (0-20)
[2022-08-24] MEDS: HYDRALAZINE HCL IVP PRN (10:23)
--- NOTE | 2022-08-24 10:26 | PCM.PROG ---
Date Seen by Provider: 08/24/22 Time Seen by Provider: 10:23 Subjective: pt improving, headache better Objective: Vitals: T=97.9 F, P=90, R=16, SG=193/102, SPO2=98 HEENT: []conjunctiva clear Neck: []supple Lungs: [] no respiratory distress CVS: []RRR Abdomen: []nondistended Extremities: []chidi Neurological: []alert and oriented Skin: []pink Lab/Tests/Diagnostic Imaging: [] head ct nap, sed wnl (1) Hypertensive urgency: Status: Acute Code(s): I16.0 - Hypertensive urgency SNOMED Code(s): 464203247 (2) Hypokalemia: Status: Acute Code(s): E87.6 - Hypokalemia SNOMED Code(s): 91011042 Plan: continue hydralazine prn, start lopressor 25xl, start tylenol 650 q6 [address] Allen at 19:00
[2022-08-24] MEDS ORDERED: TOPROL XL PO SCH (10:30)
[2022-08-24] MEDS ORDERED: CATAPRES PO STA ×2 (12:32→15:01)
[2022-08-25 05:39] LABS: BASOPHILS # (AUTO) 0.1 K/uL (0-0.2); BASOPHILS % (AUTO) 0.6 % (0.0-3.0); EOSINOPHILS # (AUTO) 0.4 K/ul (0.0-0.7); EOSINOPHILS % (AUTO) 4.5 % (0.0-7.0); HEMATOCRIT 41.1 % (37.0-47.0); HEMOGLOBIN 13.6 g/dl (12.0-16.0); IMMATURE GRANULOCYTE % (AUTO) 0.1 % (0.0-5.0); LYMPHOCYTES # (AUTO) 2.9 K/uL (0.60-3.4); LYMPHOCYTES % (AUTO) 35.2 (10.0-50.0); MEAN CORPUSCULAR HEMOGLOBIN 28.8 pg (27.0-31.0); MEAN CORPUSCULAR HGB CONC 33.1 (31.8-35.4); MEAN CORPUSCULAR VOLUME 86.9 fl (81.0-99.0); MONOCYTES # (AUTO) 0.6 K/uL (0.4-2.0); NEUTROPHILS # (AUTO) 4.3 K/ul (2.0-6.9); NEUTROPHILS % (AUTO) 52.6 % (42.2-75.2); PLATELET COUNT 193 10^3/uL (140-440); RDW COEFFICIENT OF VARIATION 13.2 % (11.6-14.8); RED BLOOD COUNT 4.73 10^6/ul (4.20-5.40); WHITE BLOOD COUNT 8.23 K/ul (4.6-10.2)
[2022-08-25] MEDS: PROTONIX PO SCH (05:41)
[2022-08-25 05:52] LABS: ALANINE AMINOTRANSFERASE 16.7 U/L (0-35); ALBUMIN 3.79 g/dL (3.5-5.0); ALKALINE PHOSPHATASE 70.3 U/L (38-126); ASPARTATE AMINO TRANSFERASE 18.6 U/L (14-36); BILIRUBIN,TOTAL 0.59 mg/dL (0.2-1.3); BLOOD UREA NITROGEN 17.3 mg/dL (7-17); CALCIUM 8.43 mg/dL (8.4-10.2); CARBON DIOXIDE 26.3 mmol/L (22-30.0); CHLORIDE 111.9 mmol/L (98-107); CREATININE 0.83 mg/dL (0.60-1.30); GLUCOSE 111.6 mg/dL (74-106); POTASSIUM 4.15 mmol/L (3.5-5.1); SODIUM 139.3 mmol/L (134.5-145); TOTAL PROTEIN 6.78 g/dL (6.3-8.2)
[2022-08-25] MEDS: HYDRALAZINE HCL IVP PRN (06:18)
[2022-08-25] MEDS ORDERED: CATAPRES PO PRN (08:47)
[2022-08-25] MEDS: K-DUR PO SCH ×2 (08:55→18:06)
[2022-08-25] MEDS ORDERED: TOPROL XL PO SCH (09:00)
[2022-08-25] MEDS: TOPROL XL PO SCH (09:28)
--- NOTE | 2022-08-25 09:53 | PCM.PROG ---
Date Seen by Provider: 08/25/22 Time Seen by Provider: 09:50 Subjective: pt w/o a headache, blood pressure still labile Objective: Vitals: T=97.9 F, P=68, R=16, YQ=239/104, SPO2=97 HEENT: []conjunctiva clear Neck: []supple Lungs: [] no respiratory distress CVS: []rrr Abdomen: []nondistended Extremities: []chidi Neurological: []alert and oriented Skin: []pink Lab/Tests/Diagnostic Imaging: [] K= 4.1 (1) Hypertensive urgency: Status: Acute Code(s): I16.0 - Hypertensive urgency SNOMED Code(s): 355922341 (2) Hypokalemia: Status: Acute Code(s): E87.6 - Hypokalemia SNOMED Code(s): 58619508 Plan: increase lopressor xl from 25 to 50, add clonidine coverage .1 q8prn for sp over [address] Allen at 19:00
[2022-08-26] MEDS: PROTONIX PO SCH (05:44)
[2022-08-26 07:26] LABS: BASOPHILS # (AUTO) 0.1 K/uL (0-0.2); BASOPHILS % (AUTO) 0.5 % (0.0-3.0); EOSINOPHILS # (AUTO) 0.4 K/ul (0.0-0.7); EOSINOPHILS % (AUTO) 3.9 % (0.0-7.0); HEMATOCRIT 45.1 % (37.0-47.0); HEMOGLOBIN 14.6 g/dl (12.0-16.0); IMMATURE GRANULOCYTE % (AUTO) 0.2 % (0.0-5.0); LYMPHOCYTES # (AUTO) 3.1 K/uL (0.60-3.4); LYMPHOCYTES % (AUTO) 32.6 (10.0-50.0); MEAN CORPUSCULAR HEMOGLOBIN 28.4 pg (27.0-31.0); MEAN CORPUSCULAR HGB CONC 32.4 (31.8-35.4); MEAN CORPUSCULAR VOLUME 87.7 fl (81.0-99.0); MONOCYTES # (AUTO) 0.7 K/uL (0.4-2.0); MONOCYTES % (AUTO) 7.5 (0-10); NEUTROPHILS # (AUTO) 5.2 K/ul (2.0-6.9); NEUTROPHILS % (AUTO) 55.3 % (42.2-75.2); PLATELET COUNT 217 10^3/uL (140-440); RDW COEFFICIENT OF VARIATION 13.1 % (11.6-14.8); RED BLOOD COUNT 5.14 10^6/ul (4.20-5.40); WHITE BLOOD COUNT 9.45 K/ul (4.6-10.2)
[2022-08-26 07:37] LABS: BLOOD UREA NITROGEN 16.4 mg/dL (7-17); CALCIUM 8.64 mg/dL (8.4-10.2); CARBON DIOXIDE 28.6 mmol/L (22-30.0); CHLORIDE 108.7 mmol/L (98-107); CREATININE 0.81 mg/dL (0.60-1.30); GLUCOSE 104.8 mg/dL (74-106); POTASSIUM 4.16 mmol/L (3.5-5.1); SODIUM 140.3 mmol/L (134.5-145)
[2022-08-26] MEDS: K-DUR PO SCH (08:36)
[2022-08-26] MEDS: TOPROL XL PO SCH (08:36)
[2022-08-26 10:09] VITALS: TEMP 97.5
[2022-08-26] MEDS: HYDRALAZINE HCL IVP PRN (12:34)
[2022-08-26 13:23] VITALS: BP 133/86
--- NOTE | 2022-08-26 13:26 | PCM.DC ---
Final Diagnosis: uncontrolled hypertension Physical Exam Appearance: Well-appearing Ill-appearing: None Pain Distress: None Eyes: Conjunctiva clear ENT: Oropharynx normal Neck: Supple Respiratory: Airway patent Cardiovascular: RRR GI/: Nontender Musculoskeletal: ROM intact Skin: Normal color Neurological: Alert and Oriented Psychiatric: Affect appropriate (1) Hypertensive urgency: Status: Acute Code(s): I16.0 - Hypertensive urgency SNOMED Code(s): 544546746 (2) Hypokalemia: Status: Acute Code(s): E87.6 - Hypokalemia SNOMED Code(s): 93456699 Reason for Hospitalization: uncontrolled blood pressure Prognosis/Condition at Discharge: good Medications at Discharge: metoprolol xl 50, clonidine and home meds, and potassium supplement Lab/Diagnostics: K+ 4.1 Education Provided to Patient and Family: obtain a home blood pressure monitior Follow-ups: see your doctor, or the clinic Discharge Disposition: Home Hospital Course: pt improved to new directed therapy Plan: discharge home
== END 2022-08-26 14:00 | disposition home or self-care (01) ==
LOC: ED 11:32 → MEDSURG A 16:46 → INTOOBSV 16:46 → MEDSURG A 17:10
PROVIDERS: ADMIT Emergency Medicine; ATTEND Emergency Medicine Emergency Medical Services
DX: E87.6 Hypokalemia; F17.210 Nicotine dependence, cigarettes, uncomplicated; Z03.89 Encounter for observation for other suspected diseases and conditions ruled out; K21.9 Gastro-esophageal reflux disease without esophagitis; I16.0 Hypertensive urgency; Z20.822 Contact with and (suspected) exposure to COVID-19; Z82.3 Family history of stroke; Z82.49 Family history of ischemic heart disease and other diseases of the circulatory system